=== PATIENT | male | born 1955 | race Caucasian/White ===

== ENCOUNTER 2020-08-09 05:58 | Day surgery (SDC) | payer OTHER, SELFPAY ==
--- NOTE | 2020-08-08 13:32 | HO.ANESPROP2 ---
HPI - Anesthesia Eval Consult details Narrative: 65yo M for rotator cuff repair PMFSH Past Medical History Medical History (Updated 08/08/20 @ 13:34 by Lakeisha Downs) No significant past medical history Social History Social History (Updated 08/08/20 @ 13:34 by Lakeisha Downs) Smoking Status: Unknown if ever smoked Meds Allergies Allergy/AdvReac Type Severity Reaction Status Date / Time No Known Allergies Allergy Unverified 06/28/20 18:58 [No Known Allergies*] Exam Exam Date and Time: August 08, 2020 1332 Assessment and Plan Assessment Anesthesia Assessment: Chart Reviewed
== END 2020-08-09 23:59 ==
PROVIDERS: Visit Provider Orthopaedic Surgery
DX: S46.012A Strain of muscle(s) and tendon(s) of the rotator cuff of left shoulder, initial encounter (principal); Z53.09 Procedure and treatment not carried out because of other contraindication; S50.312A Abrasion of left elbow, initial encounter; X83.8XXA Intentional self-harm by other specified means, initial encounter; Y93.89 Activity, other specified; Y92.9 Unspecified place or not applicable; Y99.8 Other external cause status

== ENCOUNTER 2020-08-16 05:56 | Day surgery (SDC) | payer OTHER, SELFPAY ==
[2020-08-16] VITALS (7 sets, daily range): BP systolic 109–132; BP diastolic 61–75; PULSE 58–65; RESP 14–18; TEMP 36.2–36.6; O2SAT 91–98; BMI 27.3
[2020-08-16] MEDS: Lactated Ringers 1,000 ML 100 ML IVCONT (06:42)
[2020-08-16] MEDS: ceFAZolin Sodium/Dextrose,Iso 2 GM/50 ML PIGGYBACK IV (06:43)
--- NOTE | 2020-08-16 07:11 | HO.ANESPROP2 ---
HPI - Anesthesia Eval Consult details Narrative: 65 M for rotator cuff repair PMFSH Past Medical History Medical History (Updated 08/16/20 @ 07:12 by Chris Jimenez MD) Hyperlipidemia Surgical History Surgical History (Updated 08/16/20 @ 06:21 by Stephany Rivera) History of repair of rotator cuff Social History Social History Smoking Status: Never smoker Second Hand Smoke Exposure: No Use of substances other than those prescribed or required for medical reasons: No Advance Directives: No Advance Directives Information Provided: No (unknown) Advance Directives on File: No Meds Allergies Allergy/AdvReac Type Severity Reaction Status Date / Time No Known Allergies Allergy Unverified 06/28/20 18:58 [No Known Allergies*] Home Medications Medication Instructions Recorded Confirmed Type atorvastatin 1 tab PO DAILY 08/16/20 08/16/20 History latanoprost 1 drp OPHTHALMIC (EYE) DAILY 08/16/20 08/16/20 History meloxicam 7.5 mg PO DAILY 08/16/20 08/16/20 History Exam Exam Date and Time: August 16, 2020 0711 Height,Weight and Vital Signs: Height 5 ft 7 in Weight 79.379 kg Last Vital Signs Temp 97.2 F 08/16/20 06:41 Pulse 59 08/16/20 06:41 Resp 16 08/16/20 06:41 BP 132/70 08/16/20 06:41 Pulse Ox 98 08/16/20 06:41 Airway Mallampati Class: II TM Dist: >3cm Neck ROM: Full Partial: Lower Loose/Missing/Broken Teeth: No Heart: rrr Lungs: nl Other: ao Assessment and Plan Assessment Anesthesia Assessment: Anesthesia Plan Discussed and Chart Reviewed Final Anesthetic Review NPO: Yes ASA Class: II Final Preanesthetic Review: No Changes in Pt Med Stat, Meds/Allgs Chart Reviewed, Consent Obtained/Reviewed and Anes Risks/Benef Reviewed Patient Risk: Low Procedure Risk: Low Anesthetic Plan Anesthetic Plan: GA and Regional Block Disposition: Standard PACU
--- NOTE | 2020-08-16 10:27 | P.PCNOP_ITS ---
Brief Operative Note Date of procedure: 08/16/20 Pre-op diagnosis: left rotator cuff tear Post-op diagnosis: same Procedure: left rotator cuff repair with acromioplasty Anesthesia: GLMA and regional Surgeon: Dayan Orourke Information Systems Security Officer: Fred Crockett Estimated blood loss (mL): 22 Pathology: none sent Condition: stable Disposition: PACU
--- NOTE | 2020-08-16 11:18 | HO.POSTANES ---
Post Anesthesia Evaluation Post Anesthesia Evaluation Vital Signs: Vital Signs Temp Pulse Resp BP Pulse Ox 08/16/20 10:05 97.9 F 59 18 109/69 95 08/16/20 09:49 65 16 115/66 93 08/16/20 09:35 60 16 112/64 96 08/16/20 09:30 61 16 115/61 91 L 08/16/20 09:25 58 16 112/71 96 08/16/20 09:20 97.3 F 61 14 122/75 96 08/16/20 06:41 97.2 F 59 16 132/70 98 Anesthesia: Nerve Block and General Endotracheal-GETA Mental Status: Awake Pain Control: Satisfactory Nausea/Vomiting: None Hydration: Adequate Anesthesia-Related Issues: No Anes. Related Issues
--- NOTE | 2020-08-16 12:33 | OP_ITS ---
SURGEON: Dayan Orourke MD PREOPERATIVE DIAGNOSIS: Left rotator cuff tear. POSTOPERATIVE DIAGNOSIS: Left rotator cuff tear. PROCEDURE PERFORMED: Repair of large rotator cuff tear, left shoulder with acromioplasty. ESTIMATED BLOOD LOSS: COMPLICATIONS: ANESTHESIA: ASSISTANTS: MARGIE Gunderson. SPECIMENS: CLINICAL NOTE: This gentleman has had ongoing problems with pain and weakness of his left shoulder. He has had a previous history of a rotator cuff repair in the remote past. Subsequent investigations demonstrated a large rotator cuff tear with thinning of the tissue. After explaining the risks, benefits, and alternatives and answering all of his questions, it was mutually agreed upon to carry out the following procedure. DESCRIPTION OF PROCEDURE: Under regional anesthetic and general anesthetic, the patient was placed supine on the operating table. An EUA was performed and demonstrated full range of motion and no evidence of any instability. The patient was then placed into beach-chair position and the left arm was prepped and draped in a standard fashion. Surgical time-out was then performed. The patient was identified, procedure confirmed, site confirmed. Medical analogy and history were reviewed. Preoperative antibiotics were given. Standard DVT prophylaxis in place. All other items were discussed and agreed upon. Standard anterolateral approach to the shoulder was carried out, taken down through subcutaneous tissues. Hemostasis was achieved along the way using electrocautery, brought down to the level of the deltoid, which was elevated subperiosteally off to the acromion and then split along the anterior rhaphe for a distance of approximately 2.5 cm. An 0 Ethibond suture was placed at the end to protect further split. This brought us down to the level of the rotator cuff, which was obviously torn. Though, we turned our attention first to the acromion. There was evidence of previous acromioplasty. A small resection was made in line with the anterior edge of the acromion. An undersurface pass was then made as well. It was then burred to a smooth surface and then irrigated, we turned our attention to the cuff itself. There was obviously thinning of the cuff with the supraspinatus and the infraspinatus retracted both medially and posteriorly. Anteriorly, the subscap was still in place. Using Allis and then retention sutures, the cuff could be brought once released both superiorly and inferiorly to the greater tuberosity, but there would be a small deficit i.e., like an increased rotator interval, which was not going to be able to be closed. There was already degenerative changes on the superior aspect of the humeral head. The trough was made using a rongeur to bleeding bone. Two suture anchors were then placed with a total of four sutures in the trough. With the arm held in the appropriate alignment and with tension brought up the cuff using the retention sutures, the sutures were placed from posterior to superior and through the rotator cuff in horizontal mattress fashion. They were then tied sequentially nicely bringing the cuff into the trough and covering the whole of this. The head with the small deficit anteriorly as noted previously. A bio-conductive graft was then placed over the repair and held in place in usual fashion with bone anchors laterally and tendon anchors superiorly. At this point, the shoulder had full coverage and the arm could be brought to the side easily, therefore proceeded to closure. Wound was thoroughly irrigated. The deltoid anteriorly was repaired through the bone of the anterior edge of the acromion with #1 Ethibond sutures. The lateral split was closed with a running 0 Dexon. The skin was approximated using interrupted 2-0 Dexon. The skin was closed with subcuticular V-Loc suture. Dermabond, Steri-Strips and sterile dressing were then applied. The arm was placed in a shoulder immobilizer. The patient's anesthesia was reversed and transferred supine to the room bed, then taken to the recovery room in good condition. Intraoperatively, there was approximately 22 mL blood loss. No intraoperative transfusions or complications. MD SURESH Gallardo/NICK / [id number]
== END 2020-08-16 23:59 | disposition home or self-care (01) ==
PROVIDERS: Visit Provider Orthopaedic Surgery
PROC: (CPT 23412; principal; 2020-08-16 07:30)
DX: S46.012A Strain of muscle(s) and tendon(s) of the rotator cuff of left shoulder, initial encounter (principal); S43.52XA Sprain of left acromioclavicular joint, initial encounter; X50.0XXA Overexertion from strenuous movement or load, initial encounter; Y93.89 Activity, other specified; Y92.69 Other specified industrial and construction area as the place of occurrence of the external cause; Y99.8 Other external cause status
CPT/HCPCS: 23412; 23130; 97161; C1713; C1781; J0690; J1100; J2250; J2405; J3010

== ENCOUNTER → 2020-08-24 08:52 | Outpatient (BNVA) | payer OTHER, SELFPAY | PROVIDERS: Visit Provider Physician Assistant | DX: Z47.89 Encounter for other orthopedic aftercare (principal) | CPT/HCPCS: 99212 ==

== ENCOUNTER → 2020-09-21 09:27 | Outpatient (BNVA) | payer OTHER, SELFPAY | PROVIDERS: Visit Provider Orthopaedic Surgery | DX: Z98.890 Other specified postprocedural states (principal) | CPT/HCPCS: 99212 ==

== ENCOUNTER → 2020-10-24 10:12 | Outpatient (BNVA) | payer OTHER, SELFPAY | PROVIDERS: Visit Provider Orthopaedic Surgery | DX: Z98.890 Other specified postprocedural states (principal) | CPT/HCPCS: 99212 ==

== ENCOUNTER → 2020-11-21 12:05 | Outpatient (BNVA) | payer OTHER, SELFPAY | PROVIDERS: Visit Provider Orthopaedic Surgery | DX: Z98.890 Other specified postprocedural states (principal) | CPT/HCPCS: 99212 ==

== ENCOUNTER → 2021-01-02 13:04 | Outpatient (BNVA) | payer OTHER, MEDICARE, BC, SELFPAY | PROVIDERS: Visit Provider Orthopaedic Surgery | DX: Z98.890 Other specified postprocedural states (principal) | CPT/HCPCS: 99212 ==

== ENCOUNTER → 2021-02-13 10:39 | Outpatient (BNVA) | payer OTHER, SELFPAY | PROVIDERS: Visit Provider Orthopaedic Surgery | DX: Z13.89 Encounter for screening for other disorder (principal) | CPT/HCPCS: 99212 ==

== ENCOUNTER → 2021-04-03 10:37 | Outpatient (BNVA) | payer OTHER, SELFPAY | PROVIDERS: Visit Provider Orthopaedic Surgery | DX: Z98.890 Other specified postprocedural states (principal) | CPT/HCPCS: 99212 ==

== ENCOUNTER 2021-04-08 09:00 | Outpatient (RCR) | payer OTHER, MEDICAID, MEDICARE, SELFPAY ==
--- NOTE | 2020-09-26 13:20 | MHC.PT.EP ---
[facility] [place] Office [place] Office [place] Office [address] Cash [address] [phone] F: [phone] F: [phone] F: [phone] F: [phone] Physical Therapy Plan of Care Date of Evaluation: 09/26/20 Date of Surgery: 08/16/2020 Diagnosis: s/p L rotator cuff repair. Assessment: Patient is a 65 year old R handed male who presents with s/s consistent with s/p L rotator cuff repair. This was reportedly a large repair involving infraspinatus and supraspinatus. He also had a left rotator cuff surgery in 2005. 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 Patient past medical history is otherwise unremarkable. Current impairments include pain, ROM, strength, safety, independence, posture, activity tolerance and functional mobility. Functional limitations include decreased ability to sleep, lift, carry, push, pull, and perform weight bearing activities.. Patient is motivated with good rehab potential. Skilled PT will address impairments and functional limitations in order to achieve goals. Frequency and Duration: The patient will be seen 2x/week for 8 weeks Short Term Goals: I with HEP - 2 weeks PROM flexion/abd 90 - 3 weeks Initiate strength - 3 weeks PROM ER to 40 - 4 weeks History Tutor Goals: AROM flexion and abd to 140 each - 6 weeks Strength 4/5 grossly - 8 weeks SPADI 50/130 - 8 weeks able to sleep pain free - 6 weeks Treatment Plan: Modalities to reduce pain, spasms and effusion. Manual therapy to restore motion and function. Therapeutic exercise to improve strength and flexibility. Neuromuscular re-education for posture and balance. Therapeutic activities to return to functional activities of daily living. Electronically signed by: Italo Chambers, PT Please sign and return to therapist. Thank you for your referral.
--- NOTE | 2020-10-24 09:50 | MHC.PT.OD ---
[facility] [place] Office [place] Office [place] Office [address] [phone] F: [phone] F: [phone] F: [phone] F: [phone] Physical Therapy Daily Note Diagnosis: s/p L rotator cuff repair. Date of Surgery: 08/16/2020 Date of Evaluation: 09/26/20 Date of Treatment: 10/24/20 Treatments to Date: 10 Cancellations to Date: No Shows to Date: Authorized Visits: 16 Insurance End Date: Precautions/ Contraindications:Large rotator cuff repair infraspinatus/supraspinatus. Subjective: I have been moving it more. I still use the sling to sleep. Pain Score and Location: 4 Lateral shoulder and superior shoulder. Objective Flowsheet: Tests & Measures PROM ER 48, IR 51, Flexion 110, abd 101. Exercises pulleys flexion and abd 4 min each Supine cane AAROM flexion and ER with 1# wall slides flexion submax isometrics 6 ways, [id number] PROM ER, abduction, and flexion Modalities Assessment: progressing with ROM. Addressing with HEP as well. Reduced tissue tension in tightness today. We will start light bands next week but continue to focus on progress ROM and his progress has been steady but slow thus far. PT Plan: 2x/week for 8 weeks - rotator cuff rehab, start strength in 3 weeks Short Term Goals: I with HEP - 2 weeks (Achieved) PROM flexion/abd 90 - 3 weeks (Achieved) Initiate strength - 3 weeks (Achieved) PROM ER to 40 - 4 weeks (Achieved) Thoracic Surgeon Goals: AROM flexion and abd to 140 each - 6 weeks Strength 4/5 grossly - 8 weeks SPADI 50/130 - 8 weeks able to sleep pain free - 6 weeks Electronically signed by: Italo Chambers, PT
--- NOTE | 2021-05-11 14:12 | MHC.PT.DC ---
[facility] [place] Office [place] Office [place] Office [address] [phone] F: [phone] F: [phone] F: [phone] F: [phone] Physical Therapy Discharge Report Diagnosis: s/p L rotator cuff repair. Date of Surgery: 08/16/2020. L RC REPAIR Date of Evaluation: 09/26/20 Date of Discharge: 04/08/21 Treatments to Date: 52 Cancellations to Date: 0 No Shows to Date: 0 Discharge Status: Improved Function Independent with HEP Discharge Summary: Pt HAS HAD 52 SESSIONS OF PT, HAS IMPROVED OVERALL ROM AND STRENGTH. SAW ORTHO WHO IS SENDING HIM BACK TO WORK TODAY WITHOUT RESTRICTION (ED TO Pt TO TAKE CARE OF HIS SHLDER). HAS GOOD HEP Electronically signed by: BLAIRE TYSON PT Please sign and return to therapist. Thank you for your referral.
== END 2021-05-11 14:14 | disposition home or self-care (01) ==
LOC: HO.PT 09:00
PROVIDERS: Visit Provider Orthopaedic Surgery
DX: Z47.89 Encounter for other orthopedic aftercare (principal)
CPT/HCPCS: 97110; 97112; 97140; 97161; 97162; 97164; 97530

== ENCOUNTER 2021-05-07 13:38 | Outpatient (REF) | payer MEDICARE, MEDICAID, SELFPAY ==
--- NOTE | ~2021-05-07 | XR_ITS ---
EXAMINATION: XR KNEE, LEFT CLINICAL INFORMATION: Left knee pain. COMPARISON: None TECHNIQUE: Four views of the left knee. FINDINGS: There is no evidence of acute fracture or dislocation of the left knee. No significant left knee effusion is appreciated. There is mild spurring at the patellofemoral joint. There is a small patellar spur at the site of insertion of the quadriceps tendon. Joint space compartments are maintained. XR/XR knee LT 4V IMPRESSION: Mild patellofemoral degenerative change.
== END 2021-05-07 13:39 | disposition home or self-care (01) ==
LOC: HO.XRAY 13:38
PROVIDERS: PCP Student in an Organized Health Care Education/Training Program; Visit Provider General Practice
DX: M25.562 Pain in left knee (principal)
CPT/HCPCS: 73564

== ENCOUNTER 2021-05-21 12:40 | Outpatient (REF) | payer MEDICARE, BC, SELFPAY | END 2021-05-21 12:41 | disposition home or self-care (01) | LOC: HO.HOSX 12:40 | PROVIDERS: Visit Provider Orthopaedic Surgery | DX: M22.2X2 Patellofemoral disorders, left knee (principal) | CPT/HCPCS: 99212 ==